=== PATIENT | female | born 1980 | race African-American/Black ===

== ENCOUNTER 2016-07-18 15:47 | Emergency (ER) | payer OTHER ==
[~2016-07-18] VITALS: Ht 165.1 cm; Wt 86.2 kg
[~2016-07-18 15:47] MED LIST: ACETAMINOPHEN-120 ML PO; AZITHROMYCIN 2250 MG PO; BACTRIM DS TAB1 EACH PO; CLARITIN-D 12 H1 TA1 PO; DOXYCYCLINE 10100 MG PO; IBUPROFEN 800800 M1 PO; NOHOMEMEDICATIONS; PROAIR HFA8.5 GM IH; PROVENTIL HFA6.7 G1 INH; TRAMADOL 50 MG50 MG PO; ZPAK PO
[2016-07-18 15:49] VITALS: BP 133/77
[2016-07-18] MEDS ORDERED: TESSALON PERLE100 MG PO (16:06)
[2016-07-18] MEDS ORDERED: PREDNISONE 10 M10 M1 PO (16:06)
== END 2016-07-18 16:28 | disposition home or self-care (01) ==
LOC: ER 15:47
DX: J30.2 Other seasonal allergic rhinitis (principal)